=== PATIENT | female | born 1970 | race Caucasian/White ===

== ENCOUNTER 2025-01-06 00:27 | Day surgery (SDC) | payer BC, SELFPAY ==
[2024-12-24 12:57] VITALS: BMI 35.8
--- OUTSIDE RECORDS SUMMARY | 2025-01-06 00:29 | XMS_ITS | Continuity of Care Document ---
Author Organization [facility] Address [address] [place] [address] Phone Care Team Providers Care Nuclear Monitoring Technician Name Role Phone Edgar MS, OTR/L, CHT, Jeanie Unavailable Unavailable Procedures Procedure Date Progress Note THERAPEUTIC EXERCISES MANUAL THERAPY FUNC ACTIVITY HOT/COLD PACK THERAPEUTIC EXERCISES MANUAL THERAPY FUNC ACTIVITY HOT/COLD PACK THERAPEUTIC EXERCISES MANUAL THERAPY FUNC ACTIVITY HOT/COLD PACK THERAPEUTIC EXERCISES MANUAL THERAPY FUNC ACTIVITY HOT/COLD PACK THERAPEUTIC EXERCISES MANUAL THERAPY FUNC ACTIVITY HOT/COLD PACK THERAPEUTIC EXERCISES MANUAL THERAPY FUNC ACTIVITY HOT/COLD PACK OT EVALUATION THERAPEUTIC EXERCISES MANUAL THERAPY HOT/COLD PACK Advance Directives Directive Yes / No Effective Date File Name No Information Encounters Encounter Description Practice Location Reason(s) For Visit Diagnoses Date Provider Providers Copied on Encounter [facility], [address] [place], [place] [address], [place], [place], [id number], [place] tel:[phone] [place] No Information Nov-1 6-201 6 Hauschild Jeanie. [address] [place] [address], [address], [place], [address], [place]. tel:[phone] [place] [address], [address] [place], [place] [address], [place], [place], [id number], [place] tel:[phone] [place] No Information Nov-0 7-201 6 Bagautdindeondre Amber. [address] [place] [address], [address], [place], [address], [place]. tel:[phone] [place] [address] [address], [place], [place], [id number], [place] tel:[phone] [place] No Information Oct-3 1-201 6 Hauschild Jeanie. [address] [place] [address], [address], [place], [address], [place]. tel:[phone] [place] [address], [address], [place], [place], [id number], [place] tel:[phone] [place] No Information Oct-2 8-201 6 Hauschild Jeanie. [address] [place] [address], [address], [place], [address], [place]. tel:[phone] [place] [address] [facility] [address] [facility] [address], [place], [place], [id number], [place] tel:[phone] [place] No Information Oct-2 6-201 6 Hauschild Jeanie. [address] [place] [address], [address], [place], [address], [place]. tel:[phone] [place] [address] [address], [place], [place], [id number], [place] tel:[phone] [place] No Information Oct-2 1-201 6 Hauschild Jeanie. [address] [place] [address], [address], [place], [address], [place]. tel:[phone] [place] [address] [address], [place], [place], [id number], [place] tel:[phone] [place] Pain in left elbowMuscle weakness (generalized) Lateral epicondylitis , right elbowLateral epicondylitis , left elbow 6 Edgar Jeanie. [address], [address], [place], [address], [place]. tel:[phone] Family History Family Member Type Diagnosis Age At Onset No Information Payers Payer name Insurance type Covered republican ID Authorben dent(s) [facility] [id number] Social History Type Description Quantity Date Captured Comments Sex Female Smoking Status No Information Chief Complaint And Reason For Visit No Information Reason For Referral Reason For Referral No Information History Of Present Illness Encounter Date Complaint History Of Prese nt Illness No Information Functional Status Date Functional Assessmen t No Information Instructions Date Instruction Additional Infor mation No Information Assessments Type Assessment Date No Information Patient Care Teams Name Effective Dates (start - stop) Status Members No Information
--- OUTSIDE RECORDS SUMMARY | 2025-01-06 00:29 | XMS_ITS | Encounter Summary ---
Author Organization [facility] Address [address] [place] [address] Care Team Providers Care Environmental Journalist Name Role Phone [facility], [facility] Primary Care Provider Miguel lim Encounter Details Date Type Department Care Team (Latest Contact Info) Description 04/04/2003 Outpatient Historical [facility], [address] Michael Huang MD NO ADDRESS ON FILE OVARIAN DYSFUNCTION NOS (Primary Dx) Social History Tobacco Use Types Packs/Day Years Used Date Smoking Tobacco: Never Assessed Comments Unknown Sex and Gender Information Value Date Recorded Sex Assigned at Not on file Legal Sex Female 5:08 AM THERAPY TECH Gender Identity Not on file Sexual Orientation Not on file documented as of this encounter Plan of Treatment Not on file documented as of this encounter Visit Diagnoses Diagnosis Unspecified ovarian dysfunction- Primary documented in this encounter Care Teams Environmental Journalist Relationship Specialty Start Date End Date [facility], [facility] Provider [address] [place] [address] PCP - General 07/27/15 documented as of this encounter
--- OUTSIDE RECORDS SUMMARY | 2025-01-06 00:29 | XMS_ITS | Clinical Summary ---
Author Organization [facility] Address [address] [place] [address] Phone Care Team Providers Care Photographer Aerial Name Role Phone [facility], External Provider Primary Care Provider U navailable Allergies No known active allergies Medications buPROPion HCL (WELLBUTRIN XL) 300 mg Extended Release 24 hour tablet TAKE 1 TABLET BY MOUTH ONCE DAILY IN THE MORNING 90 Tablet 4 3 Active semaglutide (Ozempic) 0.25 mg or 0.5 mg(2 mg/1.5 mL) Pen Injector Inject 0.5 mg by subcutaneous injection every 7 days. 4.5 mL 3 3 Active lisinopril-hydr oCHLOROthiazide (ZESTORETIC) 20-25 mg tablet TAKE 1 TABLET BY MOUTH ONCE DAILY. NEEDS APPT 90 Tablet 3 Active zolpidem (AMBIEN) 5 mg tabletIndicatio ns:Sleep disturbance Take 1 Tablet (5 mg) by mouth nightly as needed for Insomnia. 90 Tablet 1 3 Active OFF TRACK BETTING MANAGER Thyroid 15 mg tablet TAKE 1 TABLET BY MOUTH ONCE DAILY, NEEDS LABS DRAWN BETSY 30 Tablet 3 Active levothyroxine 125 mcg tabletIndicatio ns:Hypothyroidi sm, unspecified type TAKE 1 TABLET (125 mcg) BY MOUTH IN THE MORNING EARLY. 30 Tablet 3 Active Active Problems Problem Noted Date Diagnosed Date Other ectopic 07/27/2015 Social History Tobacco Use Types Packs/Day Years Used Date Smoking Tobacco: Never Smokeless Tobacco: Never Alcohol Use Standard Drinks/Week Comments Yes 0 (1 standard drink = 0.6 oz pur e alcohol) RARE Comments No Sex and Gender Information Value Date Recorded Sex Assigned at Not on file Legal Sex Female 5:08 AM SUPPLY PLANNER Gender Identity Not on file Sexual Orientation Not on file Last Filed Vital Signs Vital Sign Reading Time Taken Comments Blood Pressure 130/82 02/23/2023 10:41 AM CDT Pulse 93 07/27/2015 9:47 PM SUPPLY PLANNER Temperature 36.6 C (97.8 F) 07/27/2015 9:47 PM SUPPLY PLANNER Respiratory Rate 18 07/27/2015 9:47 PM SUPPLY PLANNER Oxygen Saturation 96% 07/27/2015 9:47 PM SUPPLY PLANNER Inhaled Oxygen Concentration - - Weight 102.4 kg (225 lb 12.8 oz) 2022 10:41 AM CDT Height 166.4 cm (5' 5.5 ) 09/21/2022 11 :03 AM SUPPLY PLANNER Body Mass Index 37 09/21/2022 11:03 AM SUPPLY PLANNER Plan of Treatment Health Maintenance Due Date Last Done Comments DTAP/TDAP/TD VACCINES (1 - Tdap) 1988 HEPATITIS B VACCINES (1 of 3 - 19+ 3-dose series) 1988 COLORECTAL SCREENING 2014 Colorectal Cancer Screening 2014 FIT-DNA Q 3 years 2014 FIT/FOBT Q 1 year 2014 Flex Sig/CT Colonography Q 5 years 2014 ZOSTER VACCINE (1 of 2) 2019 BREAST CANCER SCREENING 02/24/2024 02/24/20, 03/25/2021, 03/03/2021, Additional history exists INFLUENZA VACCINE (#1) 2024 PAP SMEAR 09/21/2025 09/21/2022, 02/09/2019, 08/20/2018 CERVICAL CANCER SCREENING 09/21/2027 HPV/Cotest (21-29) 09/21/2027 09/21/2022, 0 10/14/2019, 08/20/2018 HPV/Cotest (30-65) 09/21/2027 09/21/2022, 0 10/14/2019, 08/20/2018 Procedures Procedure Name Priority Date/Time Associated Diagnosis Comments MAMMO DIAGNOSTIC BILATERAL W OR WO CAD Routine 02/23/2023 10:37 AM CDT CERV/VAG CYTO AGE BASED SCREEN PAP Routine 09/21/2022 2:48 PM SUPPLY PLANNER Encounter for gynecological examination (general) (routine) with abnormal findings from Last 3 Months or Most Recently Relevant to Health Maintenance Results * MAMMO DIAGNOSTIC BILATERAL W OR WO CAD (02/23/2023 10:37 AM CDT) Anatomical Region Laterality Modality Breast Bilateral Mammography us Jhoana Lindsay MD MAMMO ORDERABLES Edited Re sult - Final * CERV/VAG CYTO AGE BASED SCREEN PAP (09/21/2022 2:48 PM SUPPLY PLANNER) COMMENT (PAP): [facility] [place] Comment: This order for age-based cervical cancer and STI screening follows ACOG guidelines(PB 168, 140, ARN439). See individual assays for performing site location. CLINICAL INFORMATION [facility] Comment:SCREENING LAST MENSTRUAL PERIOD [facility] [place] Comment:NONE GIVEN PREV PAP: [facility] [place] Comment:NONE GIVEN PREV BX: [facility] [place] Comment:NONE GIVEN SOURCE [facility] Comment:Endocervix ADEQUACY: [facility] Comment: Satisfactory for evaluation. Endocervical/transformation zone component present. Age and/or menstrual status not provided PAP INTERP [facility] [place] Comment:Negative for intraep ithelial lesion or malignancy. COMMENT (PAP TEST) [facility] [place] Comment: This Pap test has been evaluated with computer assisted technology. [facility] RECEPTIONIST: [facility] Comment: MEF, CT(ASCP) CT screening location: [place] [address] [place] [address] EXPLANATORY NOTE Que [email or web address]agon Comment: EXPLANATORY NOTE: The Pap is a screening test for cervical cancer. It is not a diagnostic test and is subject to false negative and false positive results. It is most reliable when a satisfactory sample, regularly obtained, is submitted with relevant clinical findings and history, and when the Pap result is evaluated along with historic and current clinical information. HPV E6/E7 Not Detected Not Detected [facility] Comment: Methodology: Home Support Worker-Mediated Amplification This assay detects E6/E7 viral messenger RNA (mRNA) from 14 high-risk HPV types (16,18,31,33,35,39,45,51,52,56,58,59,66,68). Cervical sources are required for HPV testing. If a vaginal source from a patient who has had a total hysterectomy with removal of cervix was submitted, please contact the testing laboratory for alternative testing options. For additional information, please refer to http://education.[employer]/faq/MEJ381h5 (This link if provided for information/ educational purposes only.) Test Performed at: [facility] [id number] [phone] Alfredo Penn D.O., MPH SL Genital SWAB OF ENDOCERVIX / Unknown 09/21/2022 2:48 PM SUPPLY PLANNER 09/21/2022 10:29 PM SUPPLY PLANNER Jhoana Lindsay MD PATHOLOGY/CYTOLOGY ORDERAB LES Final Result [facility] [phone] [facility] [address] [phone] from Last 3 Months or Most Recently Relevant to Health Maintenance Insurance [facility] BLUE ACCESS/TRUE BLUE PPO Advance Directives For more information, please contact: [phone] * Full Code (Latest Code Status on File) Date Activated Date Inactivated Comments 07/27/2015 4:37 PM 07/28/2015 12:35 AM * Full Code Date Activated Date Inactivated Comments 07/27/2015 12:56 PM 07/27/2015 4:37 PM Care Teams Photographer Aerial Relationship Specialty Start Date End Date [facility], External Provider [address] [place] [address] PCP - General 07/27/15
--- OUTSIDE RECORDS SUMMARY | 2025-01-06 00:30 | XMS_ITS | Clinical Summary ---
Author Organization [facility] Care Team Providers Care Cpr Instructor Name Role Phone Unavailable Primary Care Provider Unavailabl e Social History Tobacco Use Types Packs/Day Years Used Date Smoking Tobacco: Never Assessed Comments Unknown Sex and Gender Information Value Date Recorded Sex Assigned at Not on file Legal Sex Female 9:38 PM CDT Gender Identity Not on file Sexual Orientation Not on file Plan of Treatment Not on file
--- OUTSIDE RECORDS SUMMARY | 2025-01-06 00:30 | XMS_ITS | Encounter Summary ---
Author Organization [facility] Address [address] [place] [address] Care Team Providers Care Double Needle Stitcher Name Role Phone [facility], [facility] Primary Care Provider U navailable Reason for Visit * Reason Comments Medication Refill Encounter Details Date Type Department Care Team (Late st Contact Info) Description 09/26/2019 Refill [facility] [address] [place] [id number] [place] [id number] Jhoana Lindsay MD [address] [place] [address] Hypothyroidism, unspecified type Social History Tobacco Use Types Packs/Day Years Used Date Smoking Tobacco: Never Smokeless Tobacco: Never Alcohol Use Standard Drinks/Week Comments Yes 0 (1 standard drink = 0.6 oz pur e alcohol) RARE Comments Unknown Sex and Gender Information Value Date Recorded Sex Assigned at Not on file Legal Sex Female 5:08 AM OPHTHALMIC TECH Gender Identity Not on file Sexual Orientation Not on file documented as of this encounter Plan of Treatment Not on file documented as of this encounter Visit Diagnoses Diagnosis Hypothyroidism, unspecified type documented in this encounter Care Teams Double Needle Stitcher Relationship Specialty Start Date End Date Mini, External Provider [address] [place] [address] PCP - General 07/27/15 documented as of this encounter
--- OUTSIDE RECORDS SUMMARY | 2025-01-06 00:30 | XMS_ITS | Clinical Summary ---
Author Organization [facility] [address] [facility] lt Address [address] [place] [address] Care Team Providers Care Architecture Manager Name Role Phone Jorge Alberto Cullen MD Primary Care Provider [phone] Jorge Alberto Cullen MD Unavailable [phone] Allergies Active Allergy Reactions Criticality Noted Date Comments Prochlorperazine Unknown Medications buPROPion XL (WELLBUTRIN XL) 300 mg 24 hr tablet TAKE 1 TABLET BY MOUTH IN THE MORNING. BEGIN AFTER COMPLETING 14 DAYS OF 150 MG TABLETS. 2 Active thyroid (ARMOUR THYROID) 15 mg tablet Take 1 tablet (15 mg total) by mouth daily 2 Active lisinopril-hydr oCHLOROthiazide (ZESTORETIC) 20-25 mg per tablet Take 1 tablet by mouth daily 90 tablet 3 4 Active levothyroxine (SYNTHROID) 125 mcg tablet Take 1 tablet (125 mcg total) by mouth daily 4 Active zolpidem (AMBIEN) 5 mg tablet TAKE 1 TABLET BY MOUTH NIGHTLY NEEDED FOR SLEEP 30 tablet 4 Active albuterol HFA (PROVENTIL HFA,VENTOLIN HFA,PROAIR HFA) 90 mcg/actuation inhaler Inhale 2 puffs every 6 (six) hours as needed for wheezing 1 each 5 10/15/19 26 Active Additional Information Patient not taking.Reported on 12/24/2024 progesterone (PROMETRIUM) 100 mg capsule 1 capsule (100 mg total) daily 5 Active lidocaine 2 % solution 5 Active estradioL (ESTRACE) 1 mg tablet Take 1 tablet (1 mg total) by mouth daily 5 Active omeprazole (PriLOSEC) 20 mg capsule Take 1 capsule (20 mg total) by mouth daily Active amoxicillin-cla vulanate (AUGMENTIN) 875-125 mg per tablet Take 1 tablet by mouth 2 (two) times a day for 10 days 20 tablet 5 01/04/20 25 predniSONE (DELTASONE) 20 mg tablet Take 2 tablets (40 mg) by mouth daily for 5 days 10 tablet 5 12/30/19 25 Active Problems Problem Noted Date Diagnosed Date Acute non-recurrent pansinusitis 10/15/2024 Assessment & Plan (10/15/2024 3:31 PM RESTAURANT CREW MEMBER): Complete abx sent. Reviewed abx Ses & scheduling. Aware to complete full course. To continue mucinex/sinus otc medications. Discussed nasal saline rinses/neti pots. Push fluids. Reviewed red flags; what would warrant rtc. Annual physical exam 05/18/2024 Assessment & Plan (05/18/2024 10:41 AM CDT): Focus of exam is preventative in nature. Reviewed immunizations, reviewed sun/skin cancer screneing. Reviewed colon/breast cancer screneing. Reviewed aeroibc healthy food choices. Hypertension, essential 05/18/2024 Assessment & Plan (10/15/2024 3:30 PM RESTAURANT CREW MEMBER): Controlled on lisinopril/hydrochlorothiazide. No changes. Will continue to monitor. Assessment & Plan (05/18/2024 10:42 AM CDT): Stable on lisinopril/hctz on . No chest pains/pressures/palpitations. No increaed wokr of breathing. Lipid screening 05/18/2024 Assessment & Plan (05/18/2024 10:42 AM CDT): Screening labwork pending. Hypothyroidism 05/18/2024 Assessment & Plan (10/15/2024 3:30 PM RESTAURANT CREW MEMBER): Stable on current dose of levothyroxine. Will continue to monitor. Assessment & Plan (05/18/2024 10:42 AM CDT): Clinically euthyroid. Continue to montior TFTs and will follow response. Colon cancer screening 05/18/2024 Assessment & Plan (05/18/2024 10:42 AM CDT): Referral and will montior response. Asymptaomtic and will monitor ersponse. BMI 38.0-38.9,adult 05/18/2024 Assessment & Plan (05/18/2024 10:43 AM CDT): As above. Severe obesity (BMI 35.0-39.9) with comorbidity 01/29/2024 Assessment & Plan (05/18/2024 10:41 AM CDT): ENcourage healthy food choices. Reviewed targeting of 150min/week aerobic exercise. COVID-19 virus infection 09/20/2020 Refused influenza vaccine 10/29/2018 Bronchitis 09/01/2016 Overview (12/09/2016): Bronchitis Assessment & Plan (10/15/2024 3:30 PM RESTAURANT CREW MEMBER): Albuterol p.r.n. for wheezing. Will also send in Medrol Dosepak. Continue conservative measures at home. Red flags reviewed. Endometriosis 01/17/2014 Overview (12/07/2016): ENDOMETRIOSIS NOS Resolved Problems Problem Noted Date Diagnosed Date Resolved Date Ectopic 10/20/2015 06/18/2019 Overview (12/07/2016): Ectopic Encounters Date Type Department Care Team Description 12/24/2024 11:30 AM CDT Office Visit [facility] Primary Care at [address] [phone] Alem Chávez NP Acute non-recurrent pansinusitis (Primary Dx) 12/24/2024 Nurse Triage [facility] [address] [phone] Jorge Alberto Cullen MD 12/08/2024 Telephone [facility] Primary Care at [address] [phone] Jorge Alberto Cullen MD 05/12/[address] [facility] [address] Cullen cancelled in the [place] location 10/15/2024 3:00 PM RESTAURANT CREW MEMBER Office Visit [facility] [address] [phone] Patricia Martinez NP Acute non-recurrent pansinusitis (Primary Dx); Fever and chills; Class 2 severe obesity due to excess calories with serious comorbidity and body mass index (BMI) of 39.0 to 39.9 in adult (HCC); Hypertension, essential; Bronchitis; Hypothyroidism, unspecified type 10/15/2024 Nurse Triage [facility] [address] [phone] Jorge Alberto Cullen MD from Last 3 Months Immunizations Immunization Administration Dates Next Due Influenza, Unspecified 10/15/2024(Deferr ed: Patient Refused),05/06/2024(Deferred: Patient Refused),06/03/2023(Deferred: Patient Refused),05/01/2023(Deferred: Patient Refused),09/03/2022(Deferred: Patient Refused),09/03/2021(Deferred: Patient Refused),06/18/2019(Deferred: Patient Refused),10/29/2018(Deferred: Patient Refused),09/04/2017(Deferred: Patient Refused),09/04/2017(Deferred: Patient Refused),09/03/2017(Deferred: Patient Refused),09/04/2016(Deferred: Patient Refused),09/04/2016(Deferred: Patient Refused) Pfizer SARS-CoV-2 Monovalent Vaccination (12+ Yrs) PURPLE 07/17/2021 Surgical History Surgery Date Site/Laterality Comments OTHER SURGICAL HISTORY endometriosis: 6 failed IVF cycles OTHER SURGICAL HISTORY Fibroadenoma: right breast OTHER SURGICAL HISTORY Nephrolithiasis: Cystectomy OTHER SURGICAL HISTORY endometriossi: laparoscopy x 2 OTHER SURGICAL HISTORY D & C ECTOPIC SURGERY 2015 Ectopic Medical History Medical History Date Comments Endometritis 2008 endometriosis Hx Other Medical 2006 Fibroadenoma Calculus of kidney 2005 Nephrolithias is Hx Other Medical endometriossi Family History Medical History Relation Name Comments Crohn's disease Brother 2 Crohn's dise ase; Cancer Other 1 Family history of Cancer, unknown; Hypertension Other 2 Family history of Hypertension; Stroke Other 3 Family history of Stroke; Diabetes type II Other 4 Family hist ory of Diabetes mellitus type 2; Heart disease Other 5 Family history of Heart disease; Blood Clot Other 6 Family history of Blood clots; Other Sister 3 endometirosis; Other Sister 4 Hodgkin; Relation Name Status Comments Brother 1 Alive Brother 2 Other 1 Other 2 Other 3 Other 4 Other 5 Other 6 Sister 1 Alive Sister 2 Alive Sister 3 Sister 4 Social History Tobacco Use Types Packs/Day Years Used Date Smoking Tobacco: Never Smokeless Tobacco: Never Tobacco Cessation:Counseling Given: Not Answered Alcohol Use Standard Drinks/Week Comments Yes 0 (1 standard drink = 0.6 oz pur e alcohol) PHQ-2 Answer Date Recorded PHQ-2 Total Score (If total score is 3 or more points, staff should administer the PHQ-9) 0 10/15/2024 Comments Unknown Sex and Gender Information Value Date Recorded Sex Assigned at Not on file Legal Sex Female 8:49 AM RESTAURANT CREW MEMBER Gender Identity Not on file Sexual Orientation Not on file Obstetrics History Last Filed Vital Signs Vital Sign Reading Time Taken Comments Blood Pressure 128/84 12/24/2024 11:26 AM CDT Pulse 92 12/24/2024 11:26 AM CDT Temperature 36.4 C (97.5 F) 12/24/2024 11:26 AM CDT Respiratory Rate 18 12/24/2024 11:26 AM CDT Oxygen Saturation 99% 12/24/2024 11:26 AM CDT Inhaled Oxygen Concentration - - Weight 106 kg (233 lb 9.6 oz) 12/24/2024 11:26 A M CDT Height 165.1 cm (5' 5 ) 12/24/2024 11:26 AM CDT Body Mass Index 38.87 12/24/2024 11:26 AM CDT Plan of Treatment Health Maintenance Due Date Last Done Comments Cervical Cancer Screening 1969 Colon Cancer Screening-Colonoscopy 1969 Hepatitis C Screening 1969 DTaP/Tdap/Td Vaccine (1 - Tdap) 1980 Hepatitis B Screening 1987 Zoster Vaccine (1 of 2) 2019 Breast Cancer Screening-Mammogram 11/26/2019 11/25/2018, 08/20/2018 Covid-19 Vaccine (2 - season) 2024 07/17/2021 Regular Well Visit/Exam 18-64 05/06/2025 05/06/2024 Depression Screening 10/15/2025 10/15/2024, 05/06/2024, 01/29/2024, Additional history exists Colon Cancer Screening-DNA Stool Discontinued 05/20/2024 Colon Cancer Screening-FIT Discontinued 05/20/2024 Influenza Vaccine Discontinued Pneumococcal vaccine <65 Aged Out No longer eligible based on patient's age to complete this topic Procedures Procedure Name Priority Date/Time Associated Diagnosis Comments POC INFLUENZA A/B, COVID-19 ANTIGEN Routine 10/15/2024 3:19 PM RESTAURANT CREW MEMBER Fever and chills STOOL DNA COLOGUARD Routine 05/20/2024 10:30 AM CDT Colon cancer screening DIAGNOSTIC MAMMOGRAM Schedule Routine, Read Routine (OP Routine) 11/25/2018 from Last 3 Months or Most Recently Relevant to Health Maintenance Results * POC Influenza A/B, COVID-19 antigen (10/15/2024 3:19 PM RESTAURANT CREW MEMBER) Influenza A Ag, POC Negative Negative [facility] Influenza B Ag, POC Negative Negative [facility] Ag POC Presumptive Negative Presumptive Negative, Invalid [facility] Nasopharyngeal 10/15/2024 3: 19 PM RESTAURANT CREW MEMBER us Patricia Martinez NP POINT OF CARE TEST ORDERAB LES Final Result [facility] RADHA [address] [place] [address] * Stool DNA - Cologuard (05/20/2024 10:30 AM CDT) Stool DNA - Cologuard Negative Negative [facility] (CLIA #:[id number]) Comment: NEGATIVE TEST RESULT. A negative Cologuard result indicates a low likelihood that a colorectal cancer (CRC) or advanced adenoma (adenomatous polyps with more advanced pre-malignant features) is present. The chance that a person with a negative Cologuard test has a colorectal cancer is less than 1 in 1500 (negative predictive value >99.9%) or has an advanced adenoma is less than 5.3% (negative predictive value 94.7%). These data are based on a prospective cross-sectional study of 10,000 individuals at average risk for colorectal cancer who were screened with both Cologuard and colonoscopy. (Waleska Rodriguez. et al, N Engl J Med 2014;370(14):5515-9461) The normal value (reference range) for this assay is negative. COLOGUARD RE-SCREENING RECOMMENDATION: Periodic colorectal cancer screening is an important part of preventive healthcare for asymptomatic individuals at average risk for colorectal cancer. Following a negative Cologuard result, the [place] Cancer Society and U.S. Multi-Society Task Force screening guidelines recommend a Cologuard re-screening interval of 3 years. References: [place] [employer] Guideline for Colorectal Cancer Screening: https://www.cancer.org/cancer/ipjoi-papfjr-piochs/raoymxoyc-oireoswri-hyqsyiy/ac s-rec ommendations.html.; Yobany ZIMMER, Braxton SNELL, Zeynep VanegasK, Colorectal Cancer Screening: Recommendations for Physicians and Patients from the U.S. Multi-Society Task Force on Colorectal Cancer Screening , Am J Gastroenterology 2017; 112:1098-1379. TEST DESCRIPTION: Composite algorithmic analysis of stool DNA-biomarkers with hemoglobin immunoassay. Quantitative values of individual biomarkers are not reportable and are not associated with individual biomarker result reference ranges. Cologuard is intended for colorectal cancer screening of adults of either sex, 45 years or older, who are at average-risk for colorectal cancer (CRC). Cologuard has been approved for use by the U.S. FDA. The performance of Cologuard was established in a cross sectional study of average-risk adults aged 50-84. Cologuard performance in patients ages 45 to 49 years was estimated by sub-group analysis of near-age groups. Colonoscopies performed for a positive result may find as the most clinically significant lesion: colorectal cancer [4.0%], advanced adenoma (including sessile serrated polyps greater than or equal to 1cm diameter) [20%] or non- advanced adenoma [31%]; or no colorectal neoplasia [45%]. These estimates are derived from a prospective cross-sectional screening study of 10,000 individuals at average risk for colorectal cancer who were screened with both Cologuard and colonoscopy. (Waleska Rodriguez. et al, N Engl J Med 2014;370(14):7822-2905.) Cologuard may produce a false negative or false positive result (no colorectal cancer or precancerous polyp present at colonoscopy follow up). A negative Cologuard test result does not guarantee the absence of CRC or advanced adenoma (pre-cancer). The current Cologuard screening interval is every 3 years. ([place] Cancer Society and U.S. Multi-Society Task Force). Cologuard performance data in a 10,000 patient pivotal study using colonoscopy as the reference method can be accessed at the following location: www.[employer]/results. Additional description of the Cologuard test process, warnings and precautions can be found at www.cologuard.com. Stool 05/20/2024 10:3 0 AM CDT 06/12/2024 9:58 AM CDT us Jorge Alberto Cullen MD LAB BODY FLUIDS AND STOOL S ORDERABLES Final Result [facility] (CLIA #:[id number]) [place] [place] [address] * Diagnostic Mammogram (11/25/2018) Anatomical Region Laterality Modality Breast Mammography us Historical Provider MD BRIGHT MAMMO PROCEDURES Odalis l Result from Last 3 Months or Most Recently Relevant to Health Maintenance Insurance [employer] OOS [employer] Care Teams Architecture Manager Relationship Specialty Start Date End Date Jorge Alberto Cullen MD [address] [place] [address] PCP - General 09/21/20 Jorge Alberto Cullen MD [address] [place] [address] 09/21/20
--- OUTSIDE RECORDS SUMMARY | 2025-01-06 00:30 | XMS_ITS | Clinical Summary ---
Author Organization [facility] Address [address] [place] [address] Care Team Providers Care Bag Turner Name Role Phone Linwood Arias MD Primary Care Provider [phone] Source Comments [facility],non-[facility] Affiliates and Associated Physician Practices is amultiple site organization consisting of ambulatory clinics and hospital sitesin [place], [place], [place] and [place]. This disclosure is being madepursuant to the Care Everywhere program and may not contain all information available regarding this patient. Last updated 18.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 Gender Identity Not on file Sexual Orientation Not on file Plan of Treatment Health Maintenance Due Date Last Done Comments COLOGUARD (AGES 45-75) - COL ON CA SCREENING 1969 COLON MONITORING 1969 COLONOSCOPY - COLON CA SCREENING 1969 CT COLONOGRAPHY - COLON CA SCREENING 1969 Colorectal Cancer Screening 1969 FIT - COLON CA SCREENING 1969 FLEX SIG - COLON CA SCREENING 1969 LIPID TESTING 1969 MAMMOGRAM 1969 HIV SCREENING 1984 HEPATITIS C SCREENING 06/23/1987 DTAP/TDAP/TD VACCINES (1 - Tdap) 1988 HEPATITIS B VACCINE (1 of 3 - 19+ 3-dose series) 1988 PNEUMOCOCCAL VACCINE 50+ (1 of 1 - PCV) 2019 ZOSTER VACCINE (1 of 2) 2019 COVID-19 VACCINE (1 - 2023-2 5 season) 2024 DEPRESSION SCREENING 09/03/2024 INFLUENZA VACCINE (Season Ended) 2025 HIB VACCINE Aged Out No longer eligi ble based on patient's age to complete this topic HPV VACCINE Aged Out No longer eligi ble based on patient's age to complete this topic MENINGOCOCCAL (Group B) VACC INE SHARED DECISION-MAKING Aged Out No longer eligibl e based on patient's age to complete this topic MENINGOCOCCAL GROUPS A/C/Y/W VACCINE Aged Out No longer eligible b ased on patient's age to complete this topic Care Teams Bag Turner Relationship Specialty Start Date End Date Linwood Arias MD [address] [place] [id number] PCP - General 01/05/09
--- OUTSIDE RECORDS SUMMARY | 2025-01-06 00:30 | XMS_ITS | Referral Summary ---
Author Organization [facility] [address] [facility] lt Address [address] [place] [address] [place] [address] Care Team Providers Care Electric Meter Repairer Name Role Phone Jorge Alberto Cullen MD Primary Care Provider [phone] Jorge Alberto Cullen MD Unavailable [phone] Encounters Date Type Department Care Team Description 12/24/2024 11:30 AM CDT Office Visit [facility] Medical [facility] Primary Care at [address] [phone] Alem Chávez NP Acute non-recurrent pansinusitis (Primary Dx) 12/24/2024 Nurse Triage [facility] [address] [phone] Jorge Alberto Cullen MD 12/08/[address] [facility] Medical [facility] Primary Care at [address] [phone] Jorge Alberto Cullen MD 05/12/25 appt [facility] Dr Cullen cancelled in the [place] location 10/15/2024 3:00 PM MANAGER EQUITY Office Visit [facility] [address] [phone] Patricia Martinez NP Acute non-recurrent pansinusitis (Primary Dx); Fever and chills; Class 2 severe obesity due to excess calories with serious comorbidity and body mass index (BMI) of 39.0 to 39.9 in adult ([facility]); Hypertension, essential; Bronchitis; Hypothyroidism, unspecified type 10/15/2024 Nurse Triage [facility] [place] [address] [address] [place] [phone] Jorge Alberto Cullen MD from Last 3 Months Allergies Active Allergy Reactions Criticality Noted Date [...] mouth daily for 5 days 10 tablet 04/12/30/19 25 Active Problems Problem Noted Date Diagnosed Date Acute non-recurrent pansinusitis 10/15/2024 Assessment & Plan (10/15/2024 3:31 PM MANAGER EQUITY): Complete abx sent. Reviewed abx Ses & [...] 05/18/2024 Assessment & Plan (10/15/2024 3:30 PM MANAGER EQUITY): Controlled on lisinopril/hydrochlorothiazide. No changes. Will continue to monitor. Assessment & Plan (05/18/2024 10:42 AM CDT): Stable on lisinopril/hctz on -. No chest pains/pressures/palpitations. No increaed wokr of breathing. Lipid screening 05/18/2024 Assessment & Plan (05/18/2024 10:42 AM CDT): Screening labwork pending. Hypothyroidism 05/18/2024 Assessment & Plan (10/15/2024 3:30 PM MANAGER EQUITY): Stable on current dose of levothyroxine. Will [...] Bronchitis Assessment & Plan (10/15/2024 3:30 PM MANAGER EQUITY): Albuterol p.r.n. for wheezing. Will also send in Medrol Dosepak. Continue conservative measures at home. Red flags reviewed. Endometriosis 01/17/2014 Overview (12/07/2016): ENDOMETRIOSIS NOS Resolved Problems Problem Noted Date Diagnosed Date Resolved Date Ectopic 10/20/2015 06/18/2019 Overview (12/07/2016): Ectopic Immunizations Immunization Administration Dates Next Due Influenza, Unspecified 10/15/2024(Deferr ed: Patient Refused),05/06/2024(Deferred: Patient Refused),06/03/2023(Deferred: Patient Refused),05/01/2023(Deferred: Patient Refused),09/03/2022(Deferred: Patient Refused),09/03/2021(Deferred: Patient Refused),06/18/2019(Deferred: Patient Refused),10/29/2018(Deferred: Patient Refused),09/04/2017(Deferred: Patient Refused),09/04/2017(Deferred: Patient Refused),09/03/2017(Deferred: Patient Refused),09/04/2016(Deferred: Patient Refused),09/04/2016(Deferred: Patient Refused) Pfizer SARS-CoV-2 Monovalent Vaccination (12+ Yrs) PURPLE 07/17/2021 Social History Tobacco Use Types Packs/Day Years [...] on file Legal Sex Female 8:49 AM MANAGER EQUITY Gender Identity Not on file Sexual Orientation [...] 12/24/2024 11:26 AM CDT Plan of Treatment Not on file Procedures Procedure Name Priority Date/Time Associated Diagnosis Comments POC INFLUENZA A/B, COVID-19 ANTIGEN Routine 10/15/2024 3:19 PM MANAGER EQUITY Fever and chills STOOL DNA COLOGUARD Routine 05/20/2024 10:30 AM CDT Colon cancer screening DIAGNOSTIC MAMMOGRAM Schedule Routine, Read Routine (OP Routine) 11/25/2018 from Last 3 Months or Most Recently Relevant to Health Maintenance Results * POC Influenza A/B, COVID-19 antigen (10/15/2024 3:19 PM MANAGER EQUITY) Influenza A Ag, POC Negative Negative [facility] Influenza B Ag, POC Negative Negative [facility] COVID-19 Ag POC Presumptive Negative Presumptive Negative, Invalid [facility] Nasopharyngeal 10/15/2024 3: 19 PM MANAGER EQUITY Patricia Martinez NP POINT OF CARE TEST ORDERAB LES Final Result [facility] [address] [place] [address] * Stool DNA - Cologuard (05/20/2024 10:30 AM CDT) Stool DNA - Cologuard Negative Negative [facility] (CLIA #:[id number]) Comment: NEGATIVE TEST RESULT. A negative Cologuard [...] were screened with both Cologuard and colonoscopy. (Imperelaine T. et al, N Engl J Med 2014;370(14):4415-4561) The normal value (reference range) for this assay is negative. COLOGUARD RE-SCREENING RECOMMENDATION: Periodic colorectal cancer screening is an important part of preventive healthcare for asymptomatic individuals at average risk for colorectal cancer. Following a negative Cologuard result, the [place] Cancer Society and U.S. Multi-Society Task Force screening guidelines recommend a Cologuard re-screening interval of 3 years. References: [place] [employer] Guideline for Colorectal Cancer Screening: https://www.cancer.org/cancer/tdqdn-qpcpvb-bedzhn/zuibbgofz-ufthhfdni-xkjlrvf/ac s-rec ommendations.html.; Yobany ZIMMER, Braxton SNELL, Zeynep SAEZ, Colorectal Cancer Screening: Recommendations for Physicians and Patients from the U.S. Multi-Society Task Force on Colorectal Cancer Screening , Am J Gastroenterology 2017; 112:4086-1332. TEST DESCRIPTION: Composite algorithmic analysis of stool [...] screened with both Cologuard and colonoscopy. (Waleska Samuel et al, N Engl J Med 2014;370(14):5284-3291.) Cologuard may produce a false negative or false positive result (no colorectal cancer or precancerous polyp present at colonoscopy follow up). A negative Cologuard test result does not guarantee the absence of CRC or advanced adenoma (pre-cancer). The current Cologuard screening interval is every 3 years. ([place] [employer] Society and U.S. Multi-Society Task Force). Cologuard performance data in a 10,000 patient pivotal study using colonoscopy as the reference method can be accessed at the following location: www.[email or web address]/results. Additional description of the Cologuard test process, warnings and precautions can be found at [email or web address]. Stool 05/20/2024 10:3 0 AM CDT 06/12/2024 9:58 AM CDT us Jorge Alberto Cullen MD LAB BODY FLUIDS AND STOOL S ORDERABLES Final Result [employer] [facility] (CLIA #:[id number]) [place] [address] * Diagnostic Mammogram (11/25/2018) Anatomical Region Laterality Modality Breast Mammography us Historical Provider MD BRIGHT MAMMO PROCEDURES Odalis l Result from Last 3 Months or Most Recently Relevant to Health Maintenance Insurance [employer] OOS [employer] Care Teams Electric Meter Repairer Relationship Specialty Start Date End Date Jorge Alberto Cullen MD [address] [place] [address] [facility] - General 09/21/20 Jorge Alberto Cullen MD [address] [place] [address] 09/21/20
--- OUTSIDE RECORDS SUMMARY | 2025-01-06 00:30 | XMS_ITS | Encounter Summary ---
Author Organization [facility] Address [address] [facility] [place] [address] Phone Care Team Providers Care Chemotherapist Name Role Phone Unavailable Primary Care Provider Unavailabl e Encounter Details Date Type Department Care Team (Late st Contact Info) Description 04/24/2024 Telephone [facility] [address] [place] [address] Provider, None [place] Social History Tobacco Use Types Packs/Day Years Used Date Smoking Tobacco: Never Assessed Comments Unknown Sex and Gender Information Value Date Recorded Sex Assigned at Not on file Legal Sex Female 9:38 PM CDT Gender Identity Not on file Sexual Orientation Not on file documented as of this encounter Plan of Treatment Not on file documented as of this encounter Visit Diagnoses Not on filedocumented in this encounter
[2025-01-06 12:48] VITALS: BP 114/76; PULSE 103; RESP 14; TEMP 36.6; O2SAT 100
[2025-01-06] MEDS: LACTATED RINGERS 1,000 ML 150 ML IV CONT (12:51)
--- NOTE | 2025-01-06 13:07 | P.PNAN_ITS ---
Anes - Initial Pre Proc Eval Procedure: Operation Date: 01/06/25 14:00 Proposed Procedures p Screening Colonoscopy - Jhonny Matute MD Date/Time: 01/06/25 13:07 Surgeon: Jhonny Matute MD Pre Op Diagnosis: screening malignant neoplasm of colon Patient Data Age: 54 Gender: F Height: 1.65 m Weight: 103.6 kg Last Vital Signs Temp 97.8 F 01/06/25 12:48 Pulse 103 H 01/06/25 12:48 Resp 14 01/06/25 12:48 BP 114/76 01/06/25 12:48 Pulse Ox 100 01/06/25 12:48 O2 Del Method Room Air 01/06/25 12:48 Allergies Allergy/AdvReac Type Severity Reaction Status Date / Time No Known Allergies Allergy Verified 01/06/25 12:46 Home Medications ?Medication ?Instructions ?Recorded ?Confirmed ?Type biotin 2,500 mcg capsule 2,500 mcg PO DAILY 12/24/24 01/06/25 History bupropion HCl 300 mg 24 hr tablet, 300 mg PO DAILY 12/24/24 01/06/25 History extended release cholecalciferol (vitamin D3) 125 125 mcg PO DAILY 12/24/24 01/06/25 History mcg (5,000 unit) tablet (Vitamin D3) estradiol 1 mg tablet 2 mg PO DAILY 12/24/24 01/06/25 History levothyroxine 125 mcg tablet 125 mcg PO DAILY 12/24/24 01/06/25 History lisinopril 20 1 tablet PO DAILY 12/24/24 01/06/25 History mg-hydrochlorothiazide 25 mg tablet magnesium glycinate 100 mg (as 350 mg PO DAILY 12/24/24 01/06/25 History glycinate) tablet (Mag Glycinate) multivitamin (Daily Multi-Vitamin 1 tablet PO DAILY 12/24/24 01/06/25 History tablet) omeprazole 20 mg capsule,delayed 20 mg PO DAILY 12/24/24 01/06/25 History release progesterone micronized 100 mg 100 mg PO DAILY 12/24/24 01/06/25 History capsule selenium 200 mcg capsule 200 mcg PO DAILY 12/24/24 01/06/25 History thyroid (pork) 15 mg tablet ([employer] 15 mg PO DAILY 04/23/25 05/06/25 History Thyroid) Patient hx anesthesia problems: none Family hx anesthesia problems: none Results Review: All pre-operative results and documents have been reviewed as part of the pre- operative evaluation. [facility] Social History Social History Smoking status: Never smoker Drinks per week: 1 Alcohol use details: socially Living arrangements: with family Spiritual care concerns: No Anes - Eval Final PreProcedure Day of Procedure 01/06/25 13:07 Patient weight: obese Heart: regular rate and rhythm Lungs: clear to auscultation Airway: Mallampati scale class II Neurological: alert and oriented Last oral intake: >/= 8 hours ASA classification: III Emergent: no Anesthetic plan: proceed Anesthesia type and monitoring: general GIVS and standard monitoring Results Review: All pre-operative results and documents have been reviewed as part of the pre- operative evaluation. Informed Consent: The patient's anesthetic plan and its attendant risks and benefits were discussed with the patient/family/POA. Questions were solicited and answers provided to the satisfaction of the patient/family/POA.
--- NOTE | 2025-01-06 13:56 | PM.HPGS ---
History of Present Illness History of Present Illness Consent: Risks, benefits, and alternatives have been discussed and questions answered. Patient agrees to proceed with procedure. Chief complaint: screening malignant neoplasm of colon Narrative: Talia King is a 54 year old female here for first screening colonoscopy Review of Systems Review of Systems: All systems reviewed & are unremarkable except as noted in HPI and below PMFSH Past Medical History Medical History (Updated 01/06/25 @ 13:56 by Jhonny Matute MD) Colon cancer screening Social History Social History Smoking status: Never smoker Drinks per week: 1 Alcohol use details: socially Living arrangements: with family Spiritual care concerns: No Meds Home Medications and Allergies Home Medications ?Medication ?Instructions ?Recorded ?Confirmed ?Type biotin 2,500 mcg capsule 2,500 mcg PO DAILY 12/24/24 01/06/25 History bupropion HCl 300 mg 24 hr tablet, 300 mg PO DAILY 12/24/24 01/06/25 History extended release cholecalciferol (vitamin D3) 125 125 mcg PO DAILY 12/24/24 01/06/25 History mcg (5,000 unit) tablet (Vitamin D3) estradiol 1 mg tablet 2 mg PO DAILY 12/24/24 01/06/25 History levothyroxine 125 mcg tablet 125 mcg PO DAILY 12/24/24 01/06/25 History lisinopril 20 1 tablet PO DAILY 12/24/24 01/06/25 History mg-hydrochlorothiazide 25 mg tablet magnesium glycinate 100 mg (as 350 mg PO DAILY 12/24/24 01/06/25 History glycinate) tablet (Mag Glycinate) multivitamin (Daily Multi-Vitamin 1 tablet PO DAILY 12/24/24 01/06/25 History tablet) omeprazole 20 mg capsule,delayed 20 mg PO DAILY 12/24/24 01/06/25 History release progesterone micronized 100 mg 100 mg PO DAILY 12/24/24 01/06/25 History capsule selenium 200 mcg capsule 200 mcg PO DAILY 12/24/24 01/06/25 History thyroid (pork) 15 mg 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 12/24/24 01/06/25 History Thyroid) Allergies Allergy/AdvReac Type Severity Reaction Status Date / Time No Known Allergies Allergy Verified 01/06/25 12:46 Vital Signs Vital Signs - 24 hr 01/06/25 12:48 Temperature 97.8 F Pulse Rate 103 H Respiratory Rate 14 Blood Pressure 114/76 Pulse Oximetry 100 Oxygen Delivery Room Air Exam Const: General: comfortable and no acute distress HENMT: Face/Nose/Sinus: Normal nares present Eyes: General: appearance normal, both eyes and all related structures Neck: Neck: no JVD Resp: Auscultation: clear to auscultation bilaterally Cardio: Rate: regular rate Rhythm: regular rhythm GI: Inspection: non-distended GI Palp: Yes Soft to palpation Skin: General skin exam: normal color Neuro: General: gait normal Speech: normal speech Extrem: General: normal to inspection Psych: Mental Status: mental status grossly normal Assessment and Plan Assessment and plan (1) Colon cancer screening: Code(s): Z12.11 - Encounter for screening for malignant neoplasm of colon Status: Acute Assessment and Plan: colonoscopy
[2025-01-06 14:18] VITALS: BP 104/58; PULSE 82; RESP 18; O2SAT 98
[2025-01-06 14:28] VITALS: BP 119/98; PULSE 81; RESP 22; O2SAT 100
[2025-01-06 14:38] VITALS: BP 106/64; PULSE 72; RESP 21; O2SAT 100
== END 2025-01-06 14:50 | disposition home or self-care (01) ==
PROVIDERS: PCP Family Medicine; Visit Provider Internal Medicine Gastroenterology
PROC: 0DJD8ZZ Inspection of Lower Intestinal Tract, Via Natural or Artificial Opening Endoscopic (ICD-10-PCS; CPT 45378; principal; 2025-01-06 14:00)
DX: Z12.11 Encounter for screening for malignant neoplasm of colon (principal); K63.5 Polyp of colon; K57.30 Diverticulosis of large intestine without perforation or abscess without bleeding; K64.8 Other hemorrhoids; E66.9 Obesity, unspecified; Z68.38 Body mass index [BMI] 38.0-38.9, adult
CPT/HCPCS: 45385; 88305; J2003; J2704; J7120